=== PATIENT | male | born 1955 | race Caucasian/White ===

== ENCOUNTER 2017-09-15 13:05 | Emergency (ER) | payer SELFPAY ==
[~2017-09-15] VITALS: Ht 170.2 cm; Wt 81.6 kg
[2017-09-15 13:31] VITALS: Ht 170.2 cm; Wt 81.6 kg
[2017-09-15 19:28] VITALS: BP 146/81
== END 2017-09-15 19:28 | disposition home or self-care (01) ==
LOC: ED 13:05
DX: R21 Rash and other nonspecific skin eruption (principal)
CPT/HCPCS: J2930; Q0163